=== PATIENT | male | born 1955 | race Two or more races ===

== ENCOUNTER 2016-06-03 21:57 | Emergency (ER) | payer MEDICAID ==
[~2016-06-03] VITALS: Ht 182.9 cm; Wt 90.7 kg
[2016-06-03] MEDS ORDERED: ACETAMINOPHEN ES 500 MG TABLET ONE (22:28)
[2016-06-03] MEDS ORDERED: ASPIRIN 81 MG TAB.CHEW ONE (22:28)
[2016-06-03] MEDS ORDERED: NITROGLYCERIN 0.4 MG/TAB BOTTLE ONE (22:28)
[2016-06-03] MEDS ORDERED: NITROGLYCERIN PACKET 1 GM PACKET ONE (22:29)
[2016-06-03] MEDS ORDERED: NITROGLYCERIN 0.4 MG/TAB BOTTLE SL ONE (22:30)
[2016-06-03] MEDS ORDERED: ACETAMINOPHEN ES 500 MG TABLET PO ONE (22:30)
[2016-06-03] MEDS ORDERED: NITROGLYCERIN PACKET 1 GM PACKET TD ONE (22:30)
[2016-06-03] MEDS ORDERED: ASPIRIN 81 MG TAB.CHEW PO ONE (22:30)
[2016-06-03 22:36] LABS: BASOPHILS # (AUTO) 0.1 /CMM (0.0-0.2); BASOPHILS % (AUTO) 0.8 % (0.0-2.0); DIFF TOTAL % 100 %; EOSINOPHILS # (AUTO) 0.1 /CMM (0.0-0.7); EOSINOPHILS % (AUTO) 1.1 % (0.0-6.0); HEMATOCRIT 38 % (39-51); HEMOGLOBIN 12.4 g/dL (13.5-17.5); LYMPHOCYTES # (AUTO) 2.5 /CMM (0.8-4.8); LYMPHOCYTES % (AUTO) 27.7 % (20.0-44.0); MEAN CORPUSCULAR HEMOGLOBIN 28 PG (26.0-33.0); MEAN CORPUSCULAR HGB CONC 33 g/dl (31.0-36.0); MEAN CORPUSCULAR VOLUME 86 fL (80-96); MONOCYTES # (AUTO) 0.9 /CMM (0.1-1.30); MONOCYTES % (AUTO) 10.5 % (2.0-12.0); NEUTROPHILS # (AUTO) 5.4 /CMM (1.8-8.9); NEUTROPHILS % (AUTO) 59.9 % (43.0-81.0); PLATELET COUNT (AUTO) 269 /CMM (150-450); RED BLOOD CELL COUNT(AUTO) 4.42 MIL/uL (4.5-6.0)
[2016-06-03 22:44] LABS: ANION GAP 12 (5-14); CALCIUM, SERUM 8.7 mg/dL (8.5-10.1); CARBON DIOXIDE 29 mmol/L (21-32); CHLORIDE 103 mmol/L (98-107); CREATININE 1.1 mg/dL (0.6-1.3); GFR 68 mL/min (>60); GLUCOSE 130 mg/dL (74-106); POTASSIUM 3.4 mmol/L (3.5-5.1); SODIUM SERUM 140 mmol/L (136-145); UREA NITROGEN, BLOOD 15 mg/dL (7-18)
[2016-06-03] MEDS ORDERED: IV SET PRIMARY 1 EA INFUS.SET MC ONE (22:47)
[2016-06-03] MEDS ORDERED: METOPROLOL TARTRATE INJ 5 MG/5 ML AMPUL ONE (22:47)
[2016-06-03] MEDS ORDERED: IV NS 0.9% 1,000 ML ONE (22:47)
[2016-06-03 22:51] LABS: TROPONIN I < 0.017 ng/mL (0.00-0.056)
[2016-06-03 22:56] LABS: ALANINE AMINOTRANSFERASE 19 U/L (12-78); ALBUMIN 3.7 g/dL (3.4-5.0); ASPARTATE AMINOTRANSFERASE 8 U/L (15-37); BILIRUBIN,DIRECT 0.1 mg/dL (0.0-0.2); BILIRUBIN,TOTAL 0.4 mg/dL (0.2-1.0); INDIRECT BILIRUBIN 0.3 mg/dL (0.0-1.1); TOTAL PROTEIN, SERUM 8.1 g/dL (6.4-8.2)
[2016-06-03] MEDS ORDERED: METOPROLOL TARTRATE INJ 5 MG/5 ML AMPUL IV ONE (23:00)
[2016-06-03] MEDS ORDERED: IV NS 0.9% 1,000 ML BAG IV ONE (23:00)
[2016-06-03 23:20] LABS: INR 0.93 (0.87-1.13)
[2016-06-04 01:21] VITALS: BP 127/79
== END 2016-06-04 01:24 | disposition home or self-care (01) ==
LOC: ER 21:59
DX: R07.89 Other chest pain (principal)
CPT/HCPCS: 36415; 71010; 80048; 80076; 83880; 84484; 85025; 85378; 85730; 93005; 96361; 96374; 99285; A4606; J3490; J7030; Z7610

== ENCOUNTER 2017-01-22 17:32 | Emergency (ER) | payer MEDICAID ==
[~2017-01-22] VITALS: Ht 182.9 cm; Wt 97.1 kg
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
[2017-01-22] MEDS ORDERED: ONDANSETRON 4 MG TAB.RAPDIS SL ONE (19:00)
[2017-01-22] MEDS ORDERED: HYDROCODONE/APAP 10/325MG 1 EA TABLET PO ONE (19:00)
[2017-01-22] MEDS ORDERED: ONDANSETRON 4 MG TAB.RAPDIS ONE (19:02)
[2017-01-22] MEDS ORDERED: HYDROCODONE/APAP 10/325MG 1 EA TABLET ONE (19:02)
--- NOTE | 2017-01-22 19:16 | NUR ---
PT RESTING QUIETLY, NO ACUTE DISTRESS NOTED, RESP EVEN AND UNLABORED. PT FAMILY MEMBERS AT BEDSIDE. PENDING CT AND XRAY RESULTS.
--- NOTE | 2017-01-22 21:24 | NUR ---
PT BACK FROM RADIOLOGY. PENDING LUMBAR SPINE XRAY RESULT.
--- NOTE | 2017-01-22 22:29 | NUR ---
Patient discharged to home in stable condition. Written and verbal after care instructions given. Patient verbalizes understanding of instruction. pt family members at bedside to take pt home. pt assisted pt via wheelchair per pt and pt family members request.
[2017-01-22 22:35] VITALS: BP 132/86
== END 2017-01-22 22:35 | disposition home or self-care (01) ==
LOC: ER 17:33
DX: S62.600A Fracture of unspecified phalanx of right index finger, initial encounter for closed fracture (principal); S62.302A Unspecified fracture of third metacarpal bone, right hand, initial encounter for closed fracture; M54.2 Cervicalgia; V43.52XA Car driver injured in collision with other type car in traffic accident, initial encounter; Y93.89 Activity, other specified; Y92.488 Other paved roadways as the place of occurrence of the external cause; Y99.8 Other external cause status
CPT/HCPCS: 29125; 71010; 72110; 72125; 73130; 99284; A4606; Q0162; Z7610

== ENCOUNTER 2017-02-23 12:38 | Emergency (ER) | payer MEDICAID ==
[~2017-02-23] VITALS: Ht 180.3 cm; Wt 74.8 kg
[2017-02-23 13:03] VITALS: BP 145/77
== END 2017-02-23 14:48 | disposition home or self-care (01) ==
LOC: ER 12:40
DX: S62.610G Displaced fracture of proximal phalanx of right index finger, subsequent encounter for fracture with delayed healing (principal); S62.33 Displaced fracture of neck of other metacarpal bone; X58.XXXD Exposure to other specified factors, subsequent encounter
CPT/HCPCS: 29125; 73130; 99284; A4606; Z7610

== ENCOUNTER 2017-09-02 22:08 | Inpatient (IN) | payer MEDICAID ==
[~2017-09-02] VITALS: Ht 182.9 cm; Wt 86.2 kg
--- NOTE | 2017-09-02 22:15 | NUR ---
PT BB FAMILY FROM HOME C/O SHORTNESS OF BREATH X5 DAYS, WORSE TODAY. PT STATES PAIN ON INSPIRATION AND PAIN 5/10 ON THE LEFT SIDE OF THE CHEST. SPO2 91 ON RA WITH RR22. PT'S HR OF 140BPM. PT NOTED TO BE HAVING SHALLOW RESPIRATIONS AND MILDLY DIMINISHED LUNG SOUNDS AUSCULTATED BILATERALLY WITH CRACKLES AUSCULTATED ON L SIDE OF LUNGS. PT NOTED TO BE HOT TO TOUCH AND SLIGHTLY PALE. PT PLACED ON CARDIQAC MONITOR AND POX. PT SAFETY AND COMFORT MEASURES IN PLACE. MD BEDSIDE FOR EVAL.
--- NOTE | 2017-09-02 22:20 | NUR ---
BLOOD SPECIMEN COLLECTED AND SENT TO LAB
[2017-09-02] MEDS ORDERED: IV NS 0.9% 1,000 ML BAG IV ONE ×2 (22:30→23:00)
[2017-09-02] MEDS ORDERED: IOHEXOL-350 100 ML VIAL IV ONE (22:30)
[2017-09-02] MEDS ORDERED: SODIUM BICARBONATE 5 ML VIAL ONE (22:30)
[2017-09-02] MEDS ORDERED: IV NS 0.9% 0 ML IV ONE (22:31)
[2017-09-02] MEDS ORDERED: CT SWABBABLE VALVE TRANS SET 1 EA INFUS.SET MC ONE (22:36)
--- NOTE | 2017-09-02 22:36 | NUR ---
RADIOLOGY BEDSIDE FOR CHEST X-RAY
[2017-09-02 22:42] LABS: BASOPHILS % (AUTO) 0.3 % (0.0-2.0); EOSINOPHILS % (AUTO) 0.2 % (0.0-6.0); HEMATOCRIT 37 % (39-51); HEMOGLOBIN 12.2 g/dL (13.5-17.5); LYMPHOCYTES # (AUTO) 0.7 /CMM (0.8-4.8); LYMPHOCYTES % (AUTO) 4.7 % (20.0-44.0); MEAN CORPUSCULAR HGB CONC 34 g/dl (31.0-36.0); MEAN CORPUSCULAR VOLUME 83 fL (80-96); MONOCYTES % (AUTO) 6.8 % (2.0-12.0); NEUTROPHILS # (AUTO) 13.6 /CMM (1.8-8.9); PLATELET COUNT (AUTO) 504 /CMM (150-450); RDW COEFFICIENT OF VARIATION 14.7 (11.5-15.0); WHITE BLOOD COUNT (AUTO) 15.5 K/uL (4.3-11.0)
--- NOTE | 2017-09-02 22:43 | NUR ---
et 2 hour for [facility] transport
[2017-09-02] MEDS ORDERED: ACETAMINOPHEN ES 500 MG TABLET ONE (22:46)
[2017-09-02 22:52] LABS: CALCIUM, SERUM 9.1 mg/dL (8.5-10.1); CARBON DIOXIDE 26 mmol/L (21-32); CHLORIDE 97 mmol/L (98-107); GLUCOSE 159 mg/dL (74-106); POTASSIUM 3.8 mmol/L (3.5-5.1); SODIUM SERUM 134 mmol/L (136-145); UREA NITROGEN, BLOOD 16 mg/dL (7-18)
[2017-09-02 22:56] LABS: INR 0.96 (0.87-1.13)
[2017-09-02] MEDS ORDERED: CEFTRIAXONE 1GM BAG (ER ONLY) 50 ML IV ONE ×2 (22:56→23:00)
[2017-09-02] MEDS ORDERED: AZITHROMYCIN 500 MG VIAL ONE (22:57)
[2017-09-02 23:00] LABS: TROPONIN I < 0.017 ng/mL (0.00-0.056)
[2017-09-02] MEDS ORDERED: ACETAMINOPHEN ES 500 MG TABLET PO ONE (23:00)
[2017-09-02] MEDS ORDERED: AZITHROMYCIN 500 MG in IV D5W 250 ML IV ONE (23:00)
[2017-09-02 23:07] LABS: ALANINE AMINOTRANSFERASE 74 U/L (12-78); ALBUMIN 3.2 g/dL (3.4-5.0); ALKALINE PHOSPHATASE 79 U/L (46-116); ASPARTATE AMINOTRANSFERASE 34 U/L (15-37); B-TYPE NATRIURETIC PEPTIDE 302 PG/ML (0-125); BILIRUBIN,DIRECT 0.4 mg/dL (0.0-0.2); BILIRUBIN,TOTAL 1.1 mg/dL (0.2-1.0)
[2017-09-02 23:19] LABS: APPEARANCE,URINE CLEAR (CLEAR); BILIRUBIN,URINE 1+ (NEGATIVE); BLOOD, URINE 3+ Ery/uL (NEGATIVE); COLOR,URINE DARK YELLO (YELLOW); KETONES,URINE NEGATIVE (NEGATIVE); LEUKOCYTE ESTERASE ,URINE NEGATIVE (NEGATIVE); NITRITE, URINE NEGATIVE (NEGATIVE); PROTEIN,URINE 2+ mg/dl (NEGATIVE); UGLUCOSE NEGATIVE (NEGATIVE)
--- NOTE | 2017-09-02 23:22 | NUR ---
SPOKE TO [facility], FAXED [facility] [phone]
[2017-09-02 23:31] LABS: BACTERIA,URINE None seen /HPF (None Seen); MUCUS,URINE Rare /LPF (None Seen); SQUAMOUS EPITHELIAL CELL,UR Few /HPF (None Seen); WBC,URINE 0-2 /HPF (0-3)
--- NOTE | 2017-09-02 23:38 | NUR ---
CALLED [facility] [phone]. PER [facility] RECEIVED FAX.
[2017-09-03] MEDS ORDERED: ONDANSETRON HCL/PF 4 MG/2 ML VIAL ONE (00:11)
--- NOTE | 2017-09-03 00:13 | NUR ---
PT STATES TO FEELING NAUSEATED. MD WONG MADE AWARE. RECEIVED VERBAL ORDER TO MEDICATE PT WITH ZOFRAN 4MG IV NOW. PT MEDICATED PER ORDERS.
[2017-09-03] MEDS ORDERED: ONDANSETRON HCL/PF 4 MG/2 ML VIAL IV ONE (00:30)
--- NOTE | 2017-09-03 00:45 | NUR ---
PER ADMITTING, [facility] RECEIVED AUTH FOR ADMISSION.
[2017-09-03] MEDS ORDERED: CLAR500T PO (01:04)
[2017-09-03] MEDS ORDERED: OSEL75CA PO (01:04)
--- NOTE | 2017-09-03 01:25 | NUR ---
REPORT GIVEN TO ZHAO WELCH FOR [facility] TELE BED [phone]
[2017-09-03 01:30] VITALS: BP 118/82
--- NOTE | 2017-09-03 01:30 | NUR ---
MS SENIOR SALES COMPENSATION ANALYST NOTE Patient admitted from the ED for diagnosis of pneumonia. Patient arrived AAOx4, breathing on 2L O2 NC with no SOB, and no signs of acute distress. Patient's left AC 18g IV was connected to KCl 20 mEq in NS at 75 ml/hr. Patient was placed on telemonitor and is in sinus tachycardia at 131 bpm (per ED report, this is not a new finding), otherwise all other vitals are WNL. Initial physical assessment revealed diminished lung sounds in bilateral bases, but was otherwise unremarkable. Full health history was obtained from patient. Patient was oriented to unit and room equipment. All new orders acknowledged and carried out. Bed is in low/locked position, two side rails up, call cavazos within reach. Will continue to monitor.
[2017-09-03] MEDS ORDERED: IV PREMIX NS +20MEQ KCL 1 L IV ONE (01:55)
[2017-09-03] MEDS ORDERED: Potassium Chloride 20 MEQ in IV NS 0.9% 1,000 ML IV PRN (02:00)
[2017-09-03 04:00] VITALS: BP 121/78
--- NOTE | 2017-09-03 06:07 | NUR ---
MS RN CLOSING NOTE Patient was seen sitting up in bed AAOx4, breathing on 2L O2 NC with no SOB, and no signs of acute distress. Telemonitor shows sinus tachycardia at 124 bpm, otherwise, vital signs are WNL. KCl 20 mEq in NS is running at 75 ml/hr through the left AC 18g. Patient ambulated to the bathroom two times overnight with stand-by assist. Bed is in low/locked position, two side rails up, call cavazos within reach. All prescribed orders and patient needs met. Will endorse patient care to day shift nurse.
[2017-09-03 06:47] LABS: BASOPHILS % (AUTO) 0.1 % (0.0-2.0); HEMATOCRIT 29 % (39-51); HEMOGLOBIN 10.1 g/dL (13.5-17.5); LYMPHOCYTES % (AUTO) 6.6 % (20.0-44.0); MEAN CORPUSCULAR HGB CONC 34 g/dl (31.0-36.0); MEAN CORPUSCULAR VOLUME 85 fL (80-96); MONOCYTES # (AUTO) 1.7 /CMM (0.1-1.30); MONOCYTES % (AUTO) 11.3 % (2.0-12.0); NEUTROPHILS # (AUTO) 12.4 /CMM (1.8-8.9); PLATELET COUNT (AUTO) 397 /CMM (150-450); RDW COEFFICIENT OF VARIATION 14.7 (11.5-15.0); RED BLOOD CELL COUNT(AUTO) 3.46 MIL/uL (4.5-6.0); WHITE BLOOD COUNT (AUTO) 15.1 K/uL (4.3-11.0)
[2017-09-03 06:52] LABS: CALCIUM, SERUM 8.2 mg/dL (8.5-10.1); CREATININE 0.9 mg/dL (0.6-1.3); POTASSIUM 4.6 mmol/L (3.5-5.1)
--- NOTE | 2017-09-03 07:38 | NUR ---
COLLECTIONS CURATOR NOTES PATIENT RECEIVED RESTING INSIDE ROOM, AWAKE, ALERT AND ORIENTED. VERBALLY RESPONSIVE AND RESPONDS TO VERBAL AND TACTILE STIMULI. PATIENT BREATHING EVEN AND UNLABORED. NO SOB OR ACUTE DISTRESS NOTED AT THIS TIME. PATIENT CALM AND RELAXED. DENIES ANY PAIN OR DISCOMFORT. IV SITE INTACT AND PATENT, NO BLEEDING OR SWELLING NOTED. CONTINUE ON TELEMETRY, SINUS TACHYCARDIA AT 126-132 BPM. WILL CONTINUE TO MONITOR. BED LOCKED AND IN LOW POSITION. BILATERAL UPPER SIDE RAILS UP AND LOCKED. CALL LIGHT WITHIN EASY REACH
[2017-09-03 08:14] VITALS: BP 125/72
--- NOTE | 2017-09-03 09:10 | NUR ---
LEAD CAREGIVER NOTES PATIENT SEEN AND EXAMINED BY DR. BEARD WITH NEW ORDERS NOTED AND CARRIED OUT. PATIENT MADE AWARE AND VERBALIZED UNDERSTANDING. PHARMACY AWARE , AWAITING FOR MEDICATION DELIVERY.
[2017-09-03] MEDS: Potassium Chloride 10 MEQ in IV NS 0.9% 1,000 ML IV PRN (10:06)
--- NOTE | 2017-09-03 10:40 | NUR ---
HOSPITAL SOCIAL WORKER NOTES PLACED CALL TO PHARMACY TO FOLLOW-UP REGARDING LEVOFLOXACIN IV. SAID THEY WILL DELIVER MEDICATION. WILL CONTINUE TO MONITOR
[2017-09-03] MEDS: LEVOFLOXACIN 500 MG /D5W 100ML 500 MG in PREMIX 1 EA IV SCH (12:13)
[2017-09-03 16:00] VITALS: BP 129/73
--- NOTE | 2017-09-03 18:38 | NUR ---
MS RN NOTES PATIENT RESTING INSIDE ROOM, AWAKE, ALERT AND ORIENTED, VERBALLY RESPONSIVE AND RESPONDS TO VERBAL AND TACTILE STIMULI. ABLE TO MAKE NEEDS KNOWN AND FOLLOW SIMPLE INSTRUCTIONS. BREATHING EVEN AND UNLABORED, NO ACUTE DISTRESS AT THIS TIME BUT PATIENT WOULD C/O DISCOMFORT AND TIGHTNESS ON CHEST WHEN PERFORMING DEEP BREATHING. NO CHANGES IN LOC NOTED AT THIS TIME. PATIENT REMAINS CALM AND RELAXED. IV SITE ON LEFT AC INTACT AND PATENT, NO BLEEDING OR SWELLING NOTED. WILL ENDORSE TO INCOMING SHIFT FOR EARL. ALL DUE MEDICATIONS GIVEN AND TOLERATED WELL. PATIENT KEPT CLEAN, DRY AND COMFORTABLE. PROVIDED WITH CALM, SAFE, HAZARD-FREE ENVIRONMENT. CALL LIGHT WITHIN EASY REACH
--- NOTE | 2017-09-03 19:45 | NUR ---
MS RN OPENING NOTE Patient was sitting up in bed AAOx4, breathing on RA with no SOB, and no signs of acute distress. KCl 10 mEq in NS is running at 100 ml/hr through the left AC 18g. Daughter and are at bedside, and the medication regimen and plan of care were discussed with the family and the patient; questions and concerns were addressed. The bed is in the low/locked position, two side rails up, and call cavazos within reach. Will continue to monitor.
[2017-09-03 20:00] VITALS: BP 123/82
[2017-09-03 20:29] VITALS: BP 123/82
[2017-09-03] MEDS ORDERED: AZITHROMYCIN 500 MG in IV D5W 250 ML IV SCH (23:00)
[2017-09-04] MEDS ORDERED: CEFTRIAXONE 1 G in IV D5W 50 ML IV SCH ×2
[2017-09-04] MEDS: Potassium Chloride 10 MEQ in IV NS 0.9% 1,000 ML IV PRN ×2 (00:21→13:28)
[2017-09-04 06:25] LABS: BASOPHILS % (AUTO) 0.1 % (0.0-2.0); EOSINOPHILS % (AUTO) 0.1 % (0.0-6.0); HEMATOCRIT 31 % (39-51); HEMOGLOBIN 10.2 g/dL (13.5-17.5); LYMPHOCYTES # (AUTO) 1.6 /CMM (0.8-4.8); LYMPHOCYTES % (AUTO) 9.5 % (20.0-44.0); MEAN CORPUSCULAR HGB CONC 33 g/dl (31.0-36.0); MEAN CORPUSCULAR VOLUME 85 fL (80-96); MONOCYTES # (AUTO) 1.8 /CMM (0.1-1.30); MONOCYTES % (AUTO) 10.6 % (2.0-12.0); NEUTROPHILS # (AUTO) 13.7 /CMM (1.8-8.9); NEUTROPHILS % (AUTO) 79.7 % (43.0-81.0); PLATELET COUNT (AUTO) 406 /CMM (150-450); RDW COEFFICIENT OF VARIATION 14.8 (11.5-15.0); RED BLOOD CELL COUNT(AUTO) 3.61 MIL/uL (4.5-6.0); WHITE BLOOD COUNT (AUTO) 17.2 K/uL (4.3-11.0)
--- NOTE | 2017-09-04 06:34 | NUR ---
MS RN CLOSING NOTE Patient was seen in bed AAOx4, breathing on 3L O2 NC with no SOB, and no signs of acute distress. Patient slept intermittently throughout the night but reported no complaints and had no acute events. Patient ambulates to the bathroom with steady gait. HR remains elevated, unchanged since admission; O2 sat this AM was 92%, O2 increased to 4L; resipiratory rate and BP are WNL. KCl 10 mEq in NS is running through left AC 18g. Bed is in the low/locked position, two side rails up, and call cavazos within reach. All patient needs attended to this shift, and patient care will be endorsed to day shift nurse.
[2017-09-04 06:36] LABS: CALCIUM, SERUM 8.5 mg/dL (8.5-10.1); POTASSIUM 4.4 mmol/L (3.5-5.1)
--- NOTE | 2017-09-04 07:30 | NUR ---
MS RN NOTES PATIENT RECEIVED RESTING INSIDE ROOM. AWAKE, ALERT AND ORIENTED, VERBALLY RESPONSIVE AND RESPONDS TO VERBAL AND TACTILE STIMULI. ABLE TO MAKE NEEDS KNOWN AND FOLLOW SIMPLE INSTRUCTIONS. PATIENT BREATHING EVEN AND UNLABORED. NO SOB BUT VERBALIZES DISCOMFORT AND TIGHTNESS IN CHEST DURING DEEP BREATHING. NO ACUTE DISTRESS AT THIS TIME. PATIENT DENIES ANY PAIN OR DISCOMFORT. NO CHANGES IN LOC NOTED AT THIS TIME. IV SITE INTACT AND PATENT, NO SWELLING OR BLEEDING NOTED AT THIS TIME. WILL CONTINUE TO MONITOR. BED LOCKED AND IN LOW POSITION. BILATERAL UPPER SIDE RAILS UP AND LOCKED. CALL LIGHT WITHIN EASY REACH
[2017-09-04 08:00] VITALS: BP 135/87
--- NOTE | 2017-09-04 08:30 | NUR ---
MS RN NOTES PATIENT SEEN AND EXAMINED BY DR. BEARD WITH NEW ORDER FOR ULTRASOUND GUIDED THORACENTESIS. VERIFIED INFORMED CONSENT OBTAINED FROM PATIENT AND WITNESSED. ULTRASOUND AWARE
[2017-09-04] MEDS: LEVOFLOXACIN 500 MG /D5W 100ML 500 MG in PREMIX 1 EA IV SCH (09:10)
[2017-09-04] MEDS ORDERED: LIDOCAINE HCL/PF 1% 30 ML SDV ONE (09:36)
--- NOTE | 2017-09-04 10:41 | NUR ---
MS RN NOTES PATIENT S/P THORACENTESIS AND TOLERATED WELL. TOTAL FLUID COLLECTED 1000 ML, 950 ML IN COLLECTING VIAL + 50 ML IN SYRINGE. BROUGHT TO LAB FOR GS ORDERED BY DR. BEARD. PATIENT FOR STAT CHEST X-RAY. WILL CONTINUE TO MONITOR
[2017-09-04] MEDS: ACETAMINOPHEN 325 MG TABLET PO PRN (11:44)
[2017-09-04] MEDS: HYDROCODONE/APAP 5/325MG 1 EACH TABLET PO PRN ×2 (13:28→17:51)
[2017-09-04 16:00] VITALS: BP 128/91
--- NOTE | 2017-09-04 19:08 | NUR ---
MS RN NOTES PATIENT RESTING INSIDE ROOM. AWAKE, ALERT AND ORIENTED. VERBALLY RESPONSIVE AND RESPONDS TO VERBAL AND TACTILE STIMULI. NO ACUTE DISTRESS NOTED AT THIS TIME. PATIENT AFEBRILE, SKIN DRY AND WARM TO TOUCH. NO CHANGES IN LOC NOTED AT THIS TIME. PATIENT CALM AND RELAXED. IV SITE INTACT AND PATENT, NO SWELLING OR BLEEDING NOTED. WILL ENDORSE TO INCOMING SHIFT FOR EARL. BED LOCKED AND IN LOW POSITION. BILATERAL UPPER SIDE RAILS UP AND LOCKED. CALL LIGHT WITHIN EASY REACH
--- NOTE | 2017-09-04 19:30 | NUR ---
RN NOTE; RECEIVED PT IN BED W/ FAMILY AT THE BED SIDE. BREATHING EVENLY. NAD. SKIN WARM AND DRY. W/ C/O PAIN ON L THORACENTESIS SITE. DRESSING CDI W/ NO DISCHARGES OR BLEEDING. HOB ELEVATED. NEEDS ATTENDED. CALL LIGHT WITHIN REACH. WILL CONT TO MONITOR ,
[2017-09-04 20:00] VITALS: BP 138/88
[2017-09-04 20:41] VITALS: BP 138/88
[2017-09-05] MEDS: Potassium Chloride 10 MEQ in IV NS 0.9% 1,000 ML IV PRN ×2 (01:24→12:34)
[2017-09-05 06:22] LABS: EOSINOPHILS % (AUTO) 0.3 % (0.0-6.0); HEMATOCRIT 29 % (39-51); HEMOGLOBIN 9.7 g/dL (13.5-17.5); LYMPHOCYTES # (AUTO) 1.1 /CMM (0.8-4.8); LYMPHOCYTES % (AUTO) 7.3 % (20.0-44.0); MEAN CORPUSCULAR HGB CONC 34 g/dl (31.0-36.0); MEAN CORPUSCULAR VOLUME 85 fL (80-96); MONOCYTES # (AUTO) 1.2 /CMM (0.1-1.30); MONOCYTES % (AUTO) 7.8 % (2.0-12.0); NEUTROPHILS # (AUTO) 12.9 /CMM (1.8-8.9); NEUTROPHILS % (AUTO) 84.6 % (43.0-81.0); PLATELET COUNT (AUTO) 446 /CMM (150-450); RED BLOOD CELL COUNT(AUTO) 3.41 MIL/uL (4.5-6.0); WHITE BLOOD COUNT (AUTO) 15.3 K/uL (4.3-11.0)
--- NOTE | 2017-09-05 06:34 | NUR ---
PT IN BED AWAKE AND ALERT. BREATHING EVENLY. NO SOB. SUPPLEMENTAL O2 TAWNY WELL. NEEDS ATTENDED . BED LOW LOCKED .CALL LIGHT WITHIN REACH. WILL CONT TO MONITOR AND WILL ENDORSE TO AM SHIFT FOR EARL .
[2017-09-05 06:53] LABS: CREATININE 0.8 mg/dL (0.6-1.3); POTASSIUM 4.1 mmol/L (3.5-5.1)
--- NOTE | 2017-09-05 07:46 | NUR ---
MS RN OPENING NOTE PATIENT IS ALERT AND ORIENTED X4. NO PAIN AT THIS TIME. NO SOB OR DISTRESS NOTED. CALL LIGHT WITHIN REACH. SAFETY MEASURES IMPLEMENTED AND ABLE TO COMMUNICATE NEEDS. ON 5L/MIN WITH HUMIDIFIER TOLERATING WELL. S/P LEFT SIDE THORACENTESIS-1 LITER OUT ON 09/04. PENDING LABS THIS MORNING. IV INTACT AND PATENT WITH IV FLUIDS RUNNING AT 100 ML/HR TOLERATING WELL. WILL CONTINUE TO MONITOR THROUGHOUT SHIFT.
[2017-09-05 08:00] VITALS: BP 121/70
[2017-09-05] MEDS: LEVOFLOXACIN 500 MG /D5W 100ML 500 MG in PREMIX 1 EA IV SCH (09:44)
[2017-09-05] MEDS ORDERED: FEE PK DOSING 1 MIN EA MC ONE (10:14)
[2017-09-05] MEDS ORDERED: LEVOFLOXACIN 250 MG /D5W 50 ML 250 MG in PREMIX 1 EA IV ONE (11:00)
[2017-09-05] MEDS: VANCOMYCIN 1.25 GM in IV D5W 500 ML IV SCH ×2 (12:32→23:42)
--- NOTE | 2017-09-05 15:16 | NUR ---
MS RN NOTE INFORMED DR. BEARD THAT PATIENT AT THIS TIME IS REFUSING TO HAVE RIGHT SIDED THORACENTESIS DONE TODAY AND WOULD PREFER TO HAVE IT DONE IN THE MORNING AND WILL SIGN CONSENT FOR AM. WILL ENDORSE TO WATER TREATMENT TECHNICIAN NURSE. AWAITING TO HEAR BACK FROM Addendum: 09/05/17 at 1545 by DUSTIN HEIN RN AWARE AND RETURNED CALL BACK. OKAY TO DO RIGHT SIDE THORACENTESIS 09/06
[2017-09-05] MEDS ORDERED: IOHEXOL-300 100 ML VIAL IV ONE (15:57)
[2017-09-05 16:00] VITALS: BP 133/72
--- NOTE | 2017-09-05 18:22 | NUR ---
MS RN CLOSING NOTE PATIENT IS ALERT AND ORIENTED x4. NO PAIN AT THIS TIME. NO SOB OR DISTRESS NOTED. CALL LIGHT WITHIN REACH AT ALL TIMES. SAFETY MEASURES IMPLEMENTED. ABLE TO COMMUNICATE NEEDS. IV INTACT AND PATENT WITH IV FLUIDS RUNNING AT THIS TIME. ALL DUE MEDICATIONS GIVEN ORDERED. ALL NURSING CARE NEEDS ATTENDED TO NEEDED. ON 5L/MIN OF OXYGEN VIA NASAL CANNULA TOLERATING WELL WITH HUMIDIFIER. RIGHT SIDED THORACENTESIS TO BE DONE TOMORROW 09/06/17, CONSENT SIGNED AND PLACED IN CHART. WILL ENDORSE TO GLOBAL PROGRAM DIRECTOR NURSE FOR EARL
--- NOTE | 2017-09-05 19:30 | NUR ---
RN NOTE; RECEIVED PT IN BED W/ FAMILY AT THE BED SIDE. BREATHING EVENLY. NO SOB. NAD. SKIN WARM AND DRY. STILL W. C/O MILD PAIN ON L THORACENTESIS SITE. ON ONGOING IVF HYDRATION. NEEDS ATTENDED. BED LOW LOCKED. CALL LIGHT WITHIN REACH,. WILL CONT TO MONITOR,
[2017-09-05 20:00] VITALS: BP 131/79
[2017-09-05] MEDS: ZOLPIDEM TARTRATE 5 MG TABLET PO PRN (22:09)
--- NOTE | 2017-09-05 22:09 | NUR ---
FERNANDO GIVEN ORDERED PE PT AND FAMILY'S REQUEST FOR C/O INSOMNIA. WILL CONT TO MONITOR
--- NOTE | 2017-09-05 22:22 | NUR ---
PT REPORTED NO BM FOR THE PAST 2 DAYS. CALLED [facility] AND OBTAINED AN ORDER FOR PRN MOM.
--- NOTE | 2017-09-05 22:27 | NUR ---
MOM AND PRUNE JUICE GIVEN ORDERED PER PT'S REQUEST FOR CONSTIPATION. ALSO W/ C/O L UPPER BACK PAIN. A WARM PAD APPLIED. PT REFUSED PAIN MEDICATION AT THIS TIME. WILL CONT TO MONITOR
[2017-09-05] MEDS ORDERED: MAGNESIUM HYDROXIDE 30 ML UDC PO PRN (22:30)
[2017-09-06] MEDS: Potassium Chloride 10 MEQ in IV NS 0.9% 1,000 ML IV PRN ×2 (05:32→21:05)
--- NOTE | 2017-09-06 06:34 | NUR ---
PT IN BED AWAKE AND ALERT. STABLE. BREATHING EVENLY. NO SOB. NO ACUTE EVENT DURING THE NIGHT . REPORTED HAD A GOOD NIGHT SLEEP. NO C/O PAIN OR DISCOMFORT AT THIS TIME. NEEDS ATTENDED. ASSISTED W/ ADLS. BED LOW LOCKED. CALL LIGHT WITHIN REACH,.WILL CONT TO MONITOR AND WILL ENDORSE TO AM SHIFT FOR CO .
[2017-09-06 07:03] LABS: BASOPHILS % (AUTO) 0.2 % (0.0-2.0); EOSINOPHILS % (AUTO) 0.9 % (0.0-6.0); HEMATOCRIT 31 % (39-51); HEMOGLOBIN 10.6 g/dL (13.5-17.5); LYMPHOCYTES # (AUTO) 1.4 /CMM (0.8-4.8); LYMPHOCYTES % (AUTO) 11.8 % (20.0-44.0); MEAN CORPUSCULAR HGB CONC 34 g/dl (31.0-36.0); MEAN CORPUSCULAR VOLUME 85 fL (80-96); MONOCYTES % (AUTO) 8.4 % (2.0-12.0); NEUTROPHILS # (AUTO) 9.3 /CMM (1.8-8.9); NEUTROPHILS % (AUTO) 78.7 % (43.0-81.0); PLATELET COUNT (AUTO) 542 /CMM (150-450); RDW COEFFICIENT OF VARIATION 15.4 (11.5-15.0); RED BLOOD CELL COUNT(AUTO) 3.66 MIL/uL (4.5-6.0); WHITE BLOOD COUNT (AUTO) 11.8 K/uL (4.3-11.0)
[2017-09-06 07:14] LABS: BILIRUBIN,TOTAL 0.8 mg/dL (0.2-1.0); CALCIUM, SERUM 8.6 mg/dL (8.5-10.1); CREATININE 0.8 mg/dL (0.6-1.3); POTASSIUM 3.7 mmol/L (3.5-5.1); TOTAL PROTEIN, SERUM 7.2 g/dL (6.4-8.2)
[2017-09-06 07:19] LABS: THYROID STIMULATING HORMONE 1.153 uIU/mL (0.358-3.74)
[2017-09-06 08:00] VITALS: BP 129/89
[2017-09-06] MEDS: LACTOBACILLUS RHAMNOSUS GG 1 EACH CAP.SPRINK PO SCH ×2 (09:21→16:36)
[2017-09-06] MEDS: LEVOFLOXACIN 750 MG /D5W 150ML 150 ML IV SCH (09:21)
[2017-09-06] MEDS ORDERED: BISACODYL (5 MG) 5 MG TABLET.DR PO PRN (09:30)
[2017-09-06] MEDS: INDOMETHACIN 25 MG CAPSULE PO SCH ×2 (10:52→16:36)
[2017-09-06] MEDS: VANCOMYCIN 1.25 GM in IV D5W 500 ML IV SCH (11:03)
[2017-09-06 11:27] LABS: PHOSPHORUS 3.7 mg/dL (2.5-4.9)
[2017-09-06 11:57] LABS: THYROID STIMULATING HORMONE 0.628 uIU/mL (0.358-3.74)
[2017-09-06 15:50] VITALS: BP 115/72
[2017-09-06] MEDS: ACETAMINOPHEN 325 MG TABLET PO PRN (16:37)
--- NOTE | 2017-09-06 18:46 | NUR ---
MS RN CLOSING NOTE PATIENT RESTING COMFORTABLY IN BED AT THIS TIME. NO SOB OR DISTRESS NOTED. NO PAIN NOTED. CALL LIGHT WITHIN REACH AT ALL TIMES. SAFETY MEASURES IMPLEMENTED. ABLE TO COMMUNICATE NEEDS, IV INTACT AND PATENT NO REDNESS OR SWELLING NOTED WITH IV FLUIDS RUNNING AT THIS TIME TOLERATING WELL AT 100 ML/HR. ALL DUE MEDICATIONS GIVEN ORDERED. ALL NURSING CARE NEEDS ATTENDED TO NEEDED. S/P RIGHT SIDE THORACENTESIS-900CC TAKEN OUT AND FLUID SENT TO LAB FOR CYTOLOGY. WILL HAVE LABS IN AM. WILL ENDORSE TO HVAC TECHNICIAN FOR EARL
--- NOTE | 2017-09-06 19:40 | NUR ---
MS RN NOTE: PATIENT RESTING IN BED, NO ACUTE DISTRESS NOTED, FAMILY AT BEDSIDE. BREATHING EVEN AND UNLABORED, NO SOB NOTED. IV TO LEFT HAND IN PLACE, INFUSING NS WITH 10 MEQ KCL AT 100ML/HR. BED LOCKED AND IN LOWEST POSITION CALL LIGHT IN REACH. WILL CONTINUE TO MONITOR.
[2017-09-06 20:00] VITALS: BP 131/75
[2017-09-07] MEDS: VANCOMYCIN 1.25 GM in IV D5W 500 ML IV SCH (00:19)
--- NOTE | 2017-09-07 03:30 | NUR ---
MS RN NOTE: PATIENT SLEEPING IN BED, NO ACUTE DISTRESS NOTED. BREATHING EVEN AND UNLABORED, NO SOB NOTED. BED LOCKED AND IN LOWEST POSITION, CALL LIGHT IN REACH. WILL CONTINUE TO MONITOR
--- NOTE | 2017-09-07 06:10 | NUR ---
MS RN NOTE: PATIENT RESTING IN BED, NO ACUTE DISTRESS NOTED. BREATHING EVEN AND UNLABORED, NO SOB NOTED. IV TO LEFT HAND IN PLACE, INFUSING NS WITH 10 MEQ KCL AT 100ML/HR. BED LOCKED AND IN LOWEST POSITION CALL LIGHT IN REACH. WILL ENDORSE TO DAY NURSE TO CONTINUE WITH PLAN OF CARE.
[2017-09-07 06:52] LABS: BASOPHILS % (AUTO) 0.1 % (0.0-2.0); HEMATOCRIT 28 % (39-51); HEMOGLOBIN 9.6 g/dL (13.5-17.5); LYMPHOCYTES # (AUTO) 1.1 /CMM (0.8-4.8); LYMPHOCYTES % (AUTO) 11.2 % (20.0-44.0); MEAN CORPUSCULAR HGB CONC 34 g/dl (31.0-36.0); MEAN CORPUSCULAR VOLUME 84 fL (80-96); MONOCYTES # (AUTO) 0.7 /CMM (0.1-1.30); NEUTROPHILS # (AUTO) 7.7 /CMM (1.8-8.9); NEUTROPHILS % (AUTO) 79.7 % (43.0-81.0); PLATELET COUNT (AUTO) 545 /CMM (150-450); RDW COEFFICIENT OF VARIATION 15.1 (11.5-15.0); RED BLOOD CELL COUNT(AUTO) 3.32 MIL/uL (4.5-6.0); WHITE BLOOD COUNT (AUTO) 9.6 K/uL (4.3-11.0)
--- NOTE | 2017-09-07 07:05 | NUR ---
MS RN OPENING NOTES PATIENT SITTING IN BED ALERT ORIENTED X 4, NO ACUTE DISTRESS NOTED. BREATHING UNLABORED. NO SOB NOTED. IV ACCESS PATENT AND INTACT, NO REDNESS OR SWELLING NOTED. SAFETY MEASURES IN PLACE. CALL LIGHT WITHIN REACH. WILL CONTINUE TO MONITOR ACCORDINGLY.
[2017-09-07 07:13] LABS: ALBUMIN 1.8 g/dL (3.4-5.0); BILIRUBIN,TOTAL 0.6 mg/dL (0.2-1.0); CALCIUM, SERUM 8.3 mg/dL (8.5-10.1); CREATININE 0.8 mg/dL (0.6-1.3); POTASSIUM 3.9 mmol/L (3.5-5.1); TOTAL PROTEIN, SERUM 6.4 g/dL (6.4-8.2)
[2017-09-07 08:00] VITALS: BP 116/74
--- NOTE | 2017-09-07 08:20 | NUR ---
RN NOTES SEEN AND EVALUATED BY DR BEARD WITH NEW ORDERS MADE. NOTED AND CARRIED OUT.
[2017-09-07] MEDS: LACTOBACILLUS RHAMNOSUS GG 1 EACH CAP.SPRINK PO SCH ×2 (08:28→16:22)
[2017-09-07] MEDS: INDOMETHACIN 25 MG CAPSULE PO SCH ×2 (08:28→16:25)
[2017-09-07] MEDS ORDERED: LIDOCAINE HCL/PF 1% 30 ML SDV ONE (08:34)
--- NOTE | 2017-09-07 09:10 | NUR ---
RN NOTES SEEN AND EVALUATED BY DR NAVARRETE WITH NEW ORDERS MADE. NOTED AND CARRIED OUT.
[2017-09-07] MEDS: PANTOPRAZOLE 40 MG TABLET.DR PO SCH (09:28)
[2017-09-07] MEDS: LEVOFLOXACIN 750 MG /D5W 150ML 150 ML IV SCH (09:28)
[2017-09-07] MEDS: VANCOMYCIN 1 GM in IV D5W 250 ML IV SCH ×2 (12:37→21:02)
[2017-09-07] MEDS ORDERED: SOD FERRIC GLUC 125 MG in IV NS 0.9% 100 ML IV SCH (14:00)
--- NOTE | 2017-09-07 14:25 | NUR ---
MS RN NOTES THORACENTHESIS DONE BY DR WEEKS AT BEDSIDE, PATIENT TOLERATED WELL. SPECIMEN BROUGHT TO THE LABORATORY.
[2017-09-07 16:00] VITALS: BP 127/79
--- NOTE | 2017-09-07 16:27 | NUR ---
REGARDING U/S GUIDED THORACENTESIS, PATIENT WAS EXPLAINED ABOUT THE PROCEDURE BY DR. WEEKS AND ADVISED BOTH PATIENT AND DAUGHTER THAT HE WILL MANUALLY ASPIRATE PLEURAL FLUID FROM LEFT CHEST DUE TO FAULTY BOTTLE AND TUBING NOT FUNCTIONING FROM PARA/THORA PROCEDURE KIT. PLEURAL FLUID WAS DRAINED IN TRAY AND BASIN. PATIENT AND HIS DAUGHTER WERE IN GOOD SPIRITS AFTER PROCEDURE WAS DONE, NO ISSUES AT ALL. I TOLD ZHAO GARRISON IF SHE CAN DISPOSE OF FLUID PROPERLY, TO SEND FLUID IN SYRINGE TO THE LAB, AND ASKED HER TO ORDER STAT CHEST XRAY. SHE AGREED SHE WILL TAKE CARE OF IT AND DIDN'T NEED HELP WHEN I ASKED.
[2017-09-07] MEDS: ACETAMINOPHEN 325 MG TABLET PO PRN (16:30)
--- NOTE | 2017-09-07 18:51 | NUR ---
MS RN OPENING NOTES PATIENT SITTING IN BED ALERT ORIENTED X 4, FAMILY AT BEDSIDE.NO ACUTE DISTRESS NOTED. BREATHING UNLABORED. NO SOB NOTED. IV ACCESS PATENT AND INTACT, NO REDNESS OR SWELLING NOTED. NEEDS ATTENDED AND ANTICIPATED. DUE MEDICATIONS GIVEN.SAFETY MEASURES IN PLACE. CALL LIGHT WITHIN REACH. WILL CONTINUE TO MONITOR ACCORDINGLY. WILL ENDORSE TO NIGHT NURSE FOR CONTINUITY OF CARE,
--- NOTE | 2017-09-07 19:30 | NUR ---
MS/RN OPENING NOTES PT RECEIVED AWAKE, SITTING UP IN BED. A/OX4. FAMILY AT BEDSIDE. ON 5L COOL AEROSOL VIA NC. BREATHING EVEN AND UNLABORED. NO C/O OF PAIN AT THIS TIME. IN NO DISTRESS. BED IN LOW/LOCKED POSITION WITH CALL LIGHT IN REACH. SIDE RAILS UPX2. WILL CONTINUE TO MONITOR
[2017-09-07 20:00] VITALS: BP 134/86
--- NOTE | 2017-09-07 20:40 | NUR ---
MS/RN NOTES NOTICED ORDER FOR PLEURAL FLUID FUNGAL CX CANCELLED. CALLED LAB AND ASKED WHY IT WAS CANCELLED. LAB SAID IT APPEARS THAT THE COMPUTER CANCELLED THE ORDER ITSELF. SPECIMEN WAS ALREADY TAKEN FOR AFB AND CYTOLOGY BUT SHE DOES NOT HAVE ANY SPECIMEN TO SEND FOR FUNGAL, UNLESS WE CAN PROVIDE MORE. NOTIFIED RIPSHEAR OPERATOR.
[2017-09-07] MEDS: ZOLPIDEM TARTRATE 5 MG TABLET PO PRN (21:32)
--- NOTE | 2017-09-07 21:50 | NUR ---
MS/RN NOTES PT C/O BURNING TO IV SITE ON LEFT HAND. REINSERTED IV TO RIGHT HAND #22. GOOD BLOOD RETURN NOTED, FLUSHES WELL. NO C/O OF PAIN OR S/S OF INFILTRATION. IV VANCO CONTINUED.
[2017-09-08] MEDS: VANCOMYCIN 1 GM in IV D5W 250 ML IV SCH ×2 (05:06→13:00)
[2017-09-08 06:33] LABS: BASOPHILS % (AUTO) 0.3 % (0.0-2.0); EOSINOPHILS % (AUTO) 2.5 % (0.0-6.0); HEMATOCRIT 28 % (39-51); HEMOGLOBIN 9.6 g/dL (13.5-17.5); LYMPHOCYTES # (AUTO) 1.1 /CMM (0.8-4.8); MEAN CORPUSCULAR HGB CONC 34 g/dl (31.0-36.0); MEAN CORPUSCULAR VOLUME 84 fL (80-96); MONOCYTES # (AUTO) 0.6 /CMM (0.1-1.30); MONOCYTES % (AUTO) 6.4 % (2.0-12.0); NEUTROPHILS # (AUTO) 7.8 /CMM (1.8-8.9); NEUTROPHILS % (AUTO) 79.8 % (43.0-81.0); PLATELET COUNT (AUTO) 647 /CMM (150-450); RDW COEFFICIENT OF VARIATION 15.1 (11.5-15.0); RED BLOOD CELL COUNT(AUTO) 3.38 MIL/uL (4.5-6.0); WHITE BLOOD COUNT (AUTO) 9.7 K/uL (4.3-11.0)
--- NOTE | 2017-09-08 06:42 | NUR ---
MS/RN CLOSING NOTES PT AWAKE, SITTING UP IN BED. A/OX4. ON 5L O2 HUMIDIFIED AIR VIA NC, BREATHING EVEN AND UNLABORED. DENIES SOB AND PAIN AT THIS TIME. NO S/S OF RESPIRATORY DISTRESS. DRESSING TO LEFT MEDIAL BACK FROM THORACENTESIS YESTERDAY. C/D/I. IV TO RIGHT HAND PATENT AND INTACT. NO S/S OF INFILTRATION NOTED. KEPT PT COMFORTABLE DURING SHIFT. ALL NEEDS MET. NO SIGNIFICANT CHANGES OVERNIGHT. BED REMAINS IN LOW/LOCKED POSITION WITH CALL LIGHT IN REACH. SIDE RAILS UPX2. WILL ENDORSE TO DAY SHIFT RN EARL.
[2017-09-08 06:59] LABS: CALCIUM, SERUM 8.2 mg/dL (8.5-10.1); CREATININE 0.7 mg/dL (0.6-1.3); POTASSIUM 3.8 mmol/L (3.5-5.1)
--- NOTE | 2017-09-08 07:30 | NUR ---
MS RN OPENING NOTE RECEIVED BEDSIDE SBAR REPORT ON THE PATIENT. PATIENT IS ALERT/ORIENTED X3, COOPERATIVE. PATIENT IS IN BED, AWAKE AND RESPONSIVE. BED IS LOCKED IN LOWEST POSITION, SIDE RAILS UP X2. PATIENT IS AMBULATORY AND ORIENTED TO OWN ABILITIES. CALL LIGHT WITHIN REACH. EDUCATED TO USE THE CALL LIGHT TO CALL FOR ASSISTANCE. ALL NEEDS ARE MET. DENIES PAIN/DISCOMFORT AT THIS TIME. CHEST IS RISING EQUALLY BILATERALLY. SPO2 94% ON RA. WILL CONTINUE TO ASSESS/MONITOR THROUGHOUT THE SHIFT.
[2017-09-08 08:00] VITALS: BP 118/74
[2017-09-08] MEDS ORDERED: ERGOCALCIFEROL (VITAMIN D 2) 50,000 UNIT CAPSULE PO SCH (09:00)
[2017-09-08] MEDS: LACTOBACILLUS RHAMNOSUS GG 1 EACH CAP.SPRINK PO SCH (09:36)
[2017-09-08] MEDS: LEVOFLOXACIN 750 MG /D5W 150ML 150 ML IV SCH (09:36)
[2017-09-08] MEDS: PANTOPRAZOLE 40 MG TABLET.DR PO SCH (09:36)
[2017-09-08] MEDS: INDOMETHACIN 25 MG CAPSULE PO SCH (09:36)
[2017-09-08] MEDS ORDERED: INDO25CA49 PO (11:19)
[2017-09-08] MEDS ORDERED: PANT40TA2 PO (11:19)
[2017-09-08] MEDS ORDERED: LEVO500T75 PO (11:19)
--- NOTE | 2017-09-08 13:36 | NUR ---
VANCO TROUGH DRAW WAS CANCELLED THIS MORNING. PATIENT HAS BEEN DISCHARGED. PATIENT IS GOING TO SHOWER AND LEAVE THE HOSPITAL. REFUSED INFUSION.
--- NOTE | 2017-09-08 14:20 | NUR ---
Discharge order received. Discharge education provided at the bedside. Awake, alert and oriented X4. Cooperative. Stable, skin is intact, two small non-removable dressings at the cite of Right and Left Thoracentesis site dressing appear to be clean, dry, intact. Denies pain/discomfort at this time. Spo2 95% on RA. Ambulatory. IV catheter removed with the tip intact. Oclusive dressing applied. All belongings are accounted for. Belongings forme is signed.
--- NOTE | 2017-09-08 15:41 | NUR ---
Patient verbalized understanding of all teachings. All belongings are accounted for. Patient left the unit accompanied by the and the daughter in stable condition. accompanied by the RESIN REMOVER to the private car. Left the hospital in stable condition.
[2017-09-09] MEDS ORDERED: LEVOFLOXACIN (750 MG) 750 MG TABLET PO SCH (09:00)
[2017-09-10 06:07] LABS: *SPE A/G RATIO 0.6 (0.7-1.7); *SPE ALBUMIN 2.3 g/dL (2.9-4.4); *SPE ALPHA-1-GLOBULIN 0.6 g/dL (0.0-0.4); *SPE ALPHA-2-GLOBULIN 1.2 g/dL (0.4-1.0); *SPE BETA GLOBULIN 1.1 g/dL (0.7-1.3); *SPE GLOBULIN, TOTAL 4.1 g/dL (2.2-3.9); *SPE M-SPIKE Not Observed g/dL (Not Observed); *SPEGAMMA GLOBULIN 1.2 g/dL (0.4-1.8)
== END 2017-09-08 16:06 | disposition home or self-care (01) | DRG 720 ==
LOC: ER 22:10 → TELE 09-03 01:05 → MED 09-03 12:54
PROVIDERS: ADMIT Internal Medicine; ATTEND Internal Medicine
PROC: 0W9B3ZZ Drainage of Left Pleural Cavity, Percutaneous Approach (ICD-10-PCS; principal; 2017-09-04)
PROC: 0W993ZZ Drainage of Right Pleural Cavity, Percutaneous Approach (ICD-10-PCS; 2017-09-06)
PROC: 0W9B3ZZ Drainage of Left Pleural Cavity, Percutaneous Approach (ICD-10-PCS; 2017-09-07)
DX: A41.9 Sepsis, unspecified organism (principal); J90 Pleural effusion, not elsewhere classified; I31.3 Pericardial effusion (noninflammatory); J12.9 Viral pneumonia, unspecified; J15.9 Unspecified bacterial pneumonia; E87.1 Hypo-osmolality and hyponatremia; K21.9 Gastro-esophageal reflux disease without esophagitis; Z87.891 Personal history of nicotine dependence; R07.81 Pleurodynia; R74.0 Nonspecific elevation of levels of transaminase and lactic acid dehydrogenase [LDH]; R80.9 Proteinuria, unspecified; D50.9 Iron deficiency anemia, unspecified; E55.9 Vitamin D deficiency, unspecified
CPT/HCPCS: 36415; 71045-TC; 71270-TC; 76942-TC; 80048-TC; 80053-TC; 80061-TC; 80076-TC; 80202-TC; 81000-TC; 82306; 82728-TC; 82962-TC; 83540-TC; 83605-TC; 83735-TC; 83880; 84100-TC; 84155; 84155-TC; 84165; 84439-TC; 84443-TC; 84484-TC; 85025-TC; 85652-TC; 85730-TC; 87040-TC; 87070-TC; 87081-TC; 87086-TC; 87116; 87206; 88305-TC; 88312-TC; 88342; 89051-TC; 93307-TC; 94799-TC; A4216; A4606; J0456; J0696; J1956; J2405; J2916; J3370; J3480; J3490; J7030; J7040; J7050; J7060; Q9967; Z7610